=== PATIENT | female | born 1990 | race Two or more races ===

== ENCOUNTER 2023-08-31 14:59 | Emergency (ER) | payer SELFPAY ==
[~2023-08-31] VITALS: Ht 157.5 cm; Wt 59.0 kg
[2023-08-31] MEDS: TETANUS-DIPTH-ACEL PERTUSSIS 0.5ML SYR Tdap IM ONE (16:12)
[2023-08-31] MEDS: NEOMYCIN-BACITRACIN-POLYM UNITDOSE PKG TOP OINT TOP ONE (16:13)
[2023-08-31 16:18] VITALS: BP 120/74; PULSE 105; RESP 24; TEMP 97.6; O2SAT 99
[2023-08-31] MEDS ORDERED: AMOX875T4 PO (17:22)
[2023-08-31] MEDS ORDERED: IBUP-1456 PO (17:22)
== END 2023-08-31 17:33 | disposition home or self-care (01) ==
LOC: ER 14:59 → EDBD 14:59 → ER 17:33
DX: S61.215A Laceration without foreign body of left ring finger without damage to nail, initial encounter (principal); W55.21XA Bitten by cow, initial encounter; Y93.89 Activity, other specified; Y92.89 Other specified places as the place of occurrence of the external cause; Y99.8 Other external cause status
CPT/HCPCS: 12001; 73130; 90471; 90715